=== PATIENT | male | born 1950 | race Caucasian/White ===

== ENCOUNTER 2018-11-28 02:02 | Inpatient (IN) | payer OTHER, MEDICAID ==
[2018-11-28] MEDS ORDERED: ALTEPLASE 100 MG/100 ML VIAL IV ONE ×2 (02:11→02:49)
--- NOTE | 2018-11-28 02:15 | EDPHY ---
H & P Time Seen by Provider: 11/28/18 02:11 HPI/ROS: Chief Complaint: Left-sided weakness HPI: A 68-year-old male who was last known to be normal at 12 midnight while watching TV with his . At 1:30 a.m. The patient told his that he was not feeling well. He attempted to get off the couch and noted that he could not move his left side. EMS was called. On arrival they noted significant left -sided facial droop and he is unable to move his left arm or leg. Patient has a history of diet-controlled diabetes. Blood sugar was normal per EMS. No recent falls or illnesses. No pain. He is not on any blood thinning medications in fact takes no medications at all. No allergies to medications. ROS: 10 systems were reviewed and were negative except those elements noted in the HPI. PMH: Borderline diabetic, diet controlled Social History: No smoking, no alcohol, no recreational drug use Family History: non-contributory Physical Exam: Gen: Awake, Alert, No Distress HEENT: Nose: no rhinorrhea Eyes: PERRLA, EOMI Mouth: Moist mucosa Neck: Supple, no JVD Chest: nontender, lungs clear to auscultation Heart: S1, S2 normal, no murmur Abd: Soft, non-tender, no guarding Back: no CVA tenderness, no midline tenderness Ext: no edema, non-tender Skin: no rash Neuro: See NIH stroke score Constitutional: Initial Vital Signs Heart Rate 67 11/28/18 02:02 Respiratory Rate 17 11/28/18 02:02 Blood Pressure 170/107 H 11/28/18 02:02 O2 Sat (%) 94 11/28/18 02:02 O2 Delivery Mode Room Air O2 (L/minute) 2 Allergies/Adverse Reactions: No Known Allergies Allergy (Unverified 08/27/09 15:49) Home Medications: Medication Instructions Recorded None 08/27/09 Medical Decision Making ED Course/Re-evaluation: 60-year-old male last known normal at 12 midnight arriving shortly after 2:00 a.m. With noted left-sided weakness. NIH stroke score was obtained on arrival. Had an NIH of 10. Patient noted to be hypertensive of 175. Patient's sent to CT. Patient back from CT. [facility] neurologist, Dr. Solitario Green has performed telemedicine conference. He indicates that if the CT head is negative he recommends to proceed with tPA. He is consented the patient. He also indicates that the CT angiogram of the head is negative the patient can remain in our facility. Patient is receiving labetalol 5 mg IV for his systolic blood pressure of 190. CT scan of the head is negative for acute intracranial hemorrhage. CT angiograms unremarkable. Blood pressures improved. TPA ordered. 0300 patient's having improvement in his extremities at this time. Case discussed with Dr. Camilo, hospitalist. She will admit the patient to her hospital for further care. Critical Care Time: I spent a total of 55 minutes of critical care time in obtaining history, performing a physical exam, bedside monitoring of interventions, collecting and interpreting tests and discussion with consultants but not including time spent performing procedures. - Data Points Laboratory Results: Laboratory Results 11/28/18 02:00 11/28/18 02:00 11/28/18 11/28/18 11/28/18 02:09 02:00 02:00 WBC RBC Hgb POC Hgb 16.7 gm/dL gm/dL (13.7-17.5) Hct POC Hct 49 % % (40-51) MCV MCH MCHC RDW Plt Count MPV Neut % (Auto) Lymph % (Auto) [place] % (Auto) Eos % (Auto) Baso % (Auto) Nucleat RBC Rel Count Absolute Neuts (auto) Absolute Lymphs (auto) Absolute Monos (auto) Absolute Eos (auto) Absolute Basos (auto) Absolute Nucleated RBC Immature Gran % Immature Gran # PT 12.1 SEC SEC (12.0-15.0) INR 0.87 (0.83-1.16) APTT 27.6 SEC SEC (23.0-38.0) POC Sodium 144 mEq/L mEq/L (135-145) Sodium 141 mEq/L mEq/L (135-145) POC Potassium 3.7 mEq/L mEq/L (3.3-5.0) Potassium 4.1 mEq/L mEq/L (3.5-5.2) POC Chloride 105 mEq/L mEq/L (97-110) Chloride 107 mEq/L mEq/L (97-110) Carbon Dioxide 26 mEq/l mEq/l (22-31) POC Total CO2 27 mEq/L mEq/L (22-31) Anion Gap 8 mEq/L mEq/L (6-14) POC BUN 18 mg/dL mg/dL (7-23) BUN 19 mg/dL mg/dL (7-23) Creatinine 0.8 mg/dL mg/dL (0.7-1.3) POC Creatinine 0.8 mg/dL mg/dL (0.7-1.3) Estimated GFR > 60 Glucose 110 mg/dL H mg/dL (70-100) POC Glucose 113 mg/dL H mg/dL (70-100) Calcium 10.3 mg/dL mg/dL (8.5-10.4) 11/28/18 02:00 WBC 8.98 10^3/uL 10^3/uL (3.80-9.50) RBC 5.25 10^6/uL 10^6/uL (4.40-6.38) Hgb 16.3 g/dL g/dL (13.7-17.5) POC Hgb Hct 45.9 % % (40.0-51.0) POC Hct MCV 87.4 fL fL (81.5-99.8) MCH 31.0 pg pg (27.9-34.1) MCHC 35.5 g/dL g/dL (32.4-36.7) RDW 12.2 % % (11.5-15.2) Plt Count 297 10^3/uL 10^3/uL (150-400) MPV 10.3 fL fL (8.7-11.7) Neut % (Auto) 54.1 % % (39.3-74.2) Lymph % (Auto) 31.5 % % (15.0-45.0) [place] % (Auto) 9.7 % % (4.5-13.0) Eos % (Auto) 3.5 % % (0.6-7.6) Baso % (Auto) 1.0 % % (0.3-1.7) Nucleat RBC Rel Count 0.0 % % (0.0-0.2) Absolute Neuts (auto) 4.86 10^3/uL 10^3/uL (1.70-6.50) Absolute Lymphs (auto) 2.83 10^3/uL 10^3/uL (1.00-3.00) Absolute Monos (auto) 0.87 10^3/uL H 10^3/uL (0.30-0.80) Absolute Eos (auto) 0.31 10^3/uL 10^3/uL (0.03-0.40) Absolute Basos (auto) 0.09 10^3/uL 10^3/uL (0.02-0.10) Absolute Nucleated RBC 0.00 10^3/uL 10^3/uL (0-0.01) Immature Gran % 0.2 % % (0.0-1.1) Immature Gran # 0.02 10^3/uL 10^3/uL (0.00-0.10) PT INR APTT POC Sodium Sodium POC Potassium Potassium POC Chloride Chloride Carbon Dioxide POC Total CO2 Anion Gap POC BUN BUN Creatinine POC Creatinine Estimated GFR Glucose POC Glucose Calcium Medications Given: Nicardipine/Sodium Chloride (Cardene 0.1 Mg/Ml (Premix)) 200 mls @ 0 mls/hr IV CONT MICHELLE; Titrate PRN Reason: Protocol Stop: 05/27/19 02:59 Last Admin: 11/28/18 02:46 Dose: 200 mls Discontinued Medications Alteplase, Recombinant (Activase) 6.165 mg 0.09 mg/kg (6.165 mg) IV ONCE ONE PRN Reason: Protocol Stop: 11/28/18 02:50 Last Admin: 11/28/18 02:49 Dose: 6.165 mg Alteplase, Recombinant (Activase) 55.485 mg 0.81 mg/kg (55.485 mg) IV ONCE ONE PRN Reason: Protocol Stop: 11/28/18 02:50 Last Admin: 11/28/18 02:50 Dose: 55.485 mg Labetalol HCl (Trandate Injection) 2 mg IVP ONCE ONE Stop: 11/28/18 02:46 Last Admin: 11/28/18 02:47 Dose: 5 mg Ondansetron HCl (Zofran) 4 mg IVP EDNOW ONE Stop: 11/28/18 02:46 Last Admin: 11/28/18 02:25 Dose: 4 mg Point of Care Test Results: Chemistry 11/28/18 02:09 POC Sodium 144 mEq/L mEq/L (135-145) POC Potassium 3.7 mEq/L mEq/L (3.3-5.0) POC Chloride 105 mEq/L mEq/L (97-110) POC Total CO2 27 mEq/L mEq/L (22-31) POC BUN 18 mg/dL mg/dL (7-23) POC Creatinine 0.8 mg/dL mg/dL (0.7-1.3) POC Glucose 113 mg/dL H mg/dL (70-100) ISTAT H&H 11/28/18 02:09 POC Hgb 16.7 gm/dL gm/dL (13.7-17.5) POC Hct 49 % % (40-51) Departure - Departure Disposition: [facility] Inpatient Acute Clinical Impression: Acute ischemic stroke Condition: Critical Referrals: Patient,NotPresent [Primary Care Provider] - As per Instructions NIH Stroke Scale Date of Exam: 11/28/18 Time of Exam: 02:02 Level of Consciousness: Alert LOC Questions: Answers Both LOC Commands: Performs Both Correctly Best Gaze: Normal Visual: No Visual Loss Facial Palsy: Complete Paralysis Motor Arm-Left: No Effort to [place] Motor Arm-Right: No Drift Motor Leg-Left: No Effort to [place] Motor Leg-Right: No Drift Limb Ataxis: Absent Sensory: Normal Best Language: No Aphasia Dysarthria: Mild/Mod Dysarthria Extinction and Inattention (Neglect): No Abnormality NIH Scale Score: 10
[2018-11-28] MEDS ORDERED: ONDANSETRON 4 MG/2 ML VIAL ONE (02:23)
[2018-11-28 02:24] LABS: PLATELET COUNT 297 10^3/uL (150-400)
[2018-11-28 02:38] LABS: INR 0.87 (0.83-1.16); PROTIME(PATIENT) 12.1 SEC (12.0-15.0)
[2018-11-28] MEDS ORDERED: niCARdipine/NACL/200 ML BAG IV ONE (02:41)
[2018-11-28] MEDS ORDERED: ONDANSETRON 4 MG/2 ML VIAL IVP ONE (02:45)
[2018-11-28] MEDS ORDERED: LABETALOL HCL 5 MG/ML 20 ML MDV IVP ONE (02:45)
[2018-11-28] MEDS ORDERED: ALTEPLASE 1 MG/ML SYR IV ONE (02:49)
[2018-11-28] MEDS ORDERED: NS 50 ML IV ONE (02:49)
[2018-11-28] MEDS ORDERED: ONDANSETRON 4 MG/2 ML VIAL IVP PRN (02:58)
[2018-11-28] MEDS ORDERED: ONDANSETRON DISINTEGRATING 4 MG TAB PO PRN (02:58)
[2018-11-28] MEDS ORDERED: ACETAMINOPHEN 325 MG TAB PO PRN (02:58)
[2018-11-28] MEDS ORDERED: niCARdipine/NACL 200 ML IV SCH (03:00)
[2018-11-28] MEDS ORDERED: LABETALOL HCL 5 MG/ML 20 ML MDV IVP PRN (03:00)
[2018-11-28] MEDS: METOPROLOL TARTRATE 5 MG/5 ML INJ IVP SCH ×3 (03:52→05:25)
[2018-11-28] MEDS: NS 1,000 ML IV SCH ×2 (03:52→12:08)
--- NOTE | 2018-11-28 05:06 | PDGENHP ---
History and Physical - Chief Complaint Left facial drooping and left-sided weakness - History of Present Illness Source-patient is able to provide history appears reliable. His partner Gissel is at bedside and supplements details. EMR was reviewed and case discussed with ED provider. HPI-this is a very pleasant 68-year-old gentleman with a past medical history significant for diabetes diet controlled presents emergency department today via EMS after he called for help from his partner the complaining that he could not move off the couch. They were watching TV until but midnight went on went to sleep. Within an hour patient was calling for help. He denies any loss of consciousness. Denies any chest pain or palpitations. No changes in vision. Patient states that he felt unwell and vomited. Patient reports that he felt was hard to get some words out but his main complaint was his extremities felt like lead on the left side. Gissel reports that when she arrived to the patient's side he was leaning on the couch. Was not able to sit up independently she tried to sit him up on a pillow call 911. She reports that patient's initial blood pressures were over 200. Upon arrival patient underwent stat CT CTA and given a dose of labetalol for elevated blood pressures in the 190s. Patient notes that he does have a history of hypertension however he had made significant lifestyle changes to improve his blood sugar control. He has not checked his blood pressures in some time however he does check his blood sugars and he thought that the lower blood sugars would correlate with an improved blood pressure. After consultation with [facility] Neurology patient was consented to initiate tPA therapy. Since that time patient's symptoms have mostly resolved. He continues to have a little facial drooping and nearly normal strength in his upper and lower extremity. Patient without any speech deficits. 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 - Family History Additional family history: Maternal uncle with history CVA at elderly age otherwise family are healthy. - Social History Smoking Status: Unknown if ever smoked Alcohol Use: None Drug Use: None Additional social history: Patient lives with his significant other Gissel. Cor status-full. Review of Systems Review of Systems: ROS: 10pt was reviewed & negative except for what was stated in HPI & below Physical Exam Physical Exam: Selected Entries 11/28/18 02:02 Blood Pressure Automatic Method Heart Rate 67 Respiratory 17 Rate O2 Sat (%) 94 Blood Pressure 170/107 H Mean Arterial 128 H Pressure (MAP) O2 Delivery Room Air Mode Temp Pulse Resp BP Pulse Ox 36.2 C 62 18 178/97 H 94 11/28/18 03:30 11/28/18 04:45 11/28/18 04:45 11/28/18 04:45 11/28/18 04:45 O2 (L/minute) 2 Constitutional: no apparent distress, other (NAD. Pleasant elderly frail- appearing gentleman is sitting up in gurney. His significant other is at bedside.) Eyes: PERRL (Slightly decreased reactivity light bilaterally but symmetric.), anicteric sclera, EOMI, No scleral injection Ears, Nose, Mouth, Throat: poor dentition, dry mucous membranes, other (No nasal discharge.) Cardiovascular: regular rate and rhythym, no murmur, rub, or gallop, pulses symmetric bilaterally, No edema Peripheral Pulses: 2+: dorsalis-pedis (R), dorsalis-pedis (L) Respiratory: no respiratory distress, no rales or rhonchi, clear to auscultation , No inspiratory crackles, No respiratory distress Gastrointestinal: normoactive bowel sounds, soft, non-tender abdomen, no palpable masses, No distension Genitourinary: no bladder tenderness, No castillo in urethra Skin: warm, normal color, no rashes or abrasions Musculoskeletal: other (Patient is able to move all extremities. There is very minimally subtle strength difference in his upper lower extremity on the left just barely weaker than the right.), No generalized weakness Neurologic: AAOx3, sensation intact bilaterally, facial droop (Minimal left lower facial droop otherwise cranial nerves intact.) Psychiatric: interacting appropriately, not encephalopathic, thought process linear, anxious, No poor insight, No poor judgement, No poor memory Lab Data & Imaging Review 11/28/18 02:00 11/28/18 02:00 WBC 8.98 10^3/uL (3.80-9.50) 11/28/18 02:00 RBC 5.25 10^6/uL (4.40-6.38) 11/28/18 02:00 Hgb 16.3 g/dL (13.7-17.5) 11/28/18 02:00 POC Hgb 16.7 gm/dL (13.7-17.5) 11/28/18 02:09 Hct 45.9 % (40.0-51.0) 11/28/18 02:00 POC Hct 49 % (40-51) 11/28/18 02:09 MCV 87.4 fL (81.5-99.8) 11/28/18 02:00 MCH 31.0 pg (27.9-34.1) 11/28/18 02:00 MCHC 35.5 g/dL (32.4-36.7) 11/28/18 02:00 RDW 12.2 % (11.5-15.2) 11/28/18 02:00 Plt Count 297 10^3/uL (150-400) 11/28/18 02:00 MPV 10.3 fL (8.7-11.7) 11/28/18 02:00 Neut % (Auto) 54.1 % (39.3-74.2) 11/28/18 02:00 Lymph % (Auto) 31.5 % (15.0-45.0) 11/28/18 02:00 [place] % (Auto) 9.7 % (4.5-13.0) 11/28/18 02:00 Eos % (Auto) 3.5 % (0.6-7.6) 11/28/18 02:00 Baso % (Auto) 1.0 % (0.3-1.7) 11/28/18 02:00 Nucleat RBC Rel Count 0.0 % (0.0-0.2) 11/28/18 02:00 Absolute Neuts (auto) 4.86 10^3/uL (1.70-6.50) 11/28/18 02:00 Absolute Lymphs (auto) 2.83 10^3/uL (1.00-3.00) 11/28/18 02:00 Absolute Monos (auto) 0.87 10^3/uL (0.30-0.80) H 11/28/18 02:00 Absolute Eos (auto) 0.31 10^3/uL (0.03-0.40) 11/28/18 02:00 Absolute Basos (auto) 0.09 10^3/uL (0.02-0.10) 11/28/18 02:00 Absolute Nucleated RBC 0.00 10^3/uL (0-0.01) 11/28/18 02:00 Immature Gran % 0.2 % (0.0-1.1) 11/28/18 02:00 Immature Gran # 0.02 10^3/uL (0.00-0.10) 11/28/18 02:00 PT 12.1 SEC (12.0-15.0) 11/28/18 02:00 INR 0.87 (0.83-1.16) 11/28/18 02:00 APTT 27.6 SEC (23.0-38.0) 11/28/18 02:00 POC Sodium 144 mEq/L (135-145) 11/28/18 02:09 Sodium 141 mEq/L (135-145) 11/28/18 02:00 POC Potassium 3.7 mEq/L (3.3-5.0) 11/28/18 02:09 Potassium 4.1 mEq/L (3.5-5.2) 11/28/18 02:00 POC Chloride 105 mEq/L (97-110) 11/28/18 02:09 Chloride 107 mEq/L (97-110) 11/28/18 02:00 Carbon Dioxide 26 mEq/l (22-31) 11/28/18 02:00 POC Total CO2 27 mEq/L (22-31) 11/28/18 02:09 Anion Gap 8 mEq/L (6-14) 11/28/18 02:00 POC BUN 18 mg/dL (7-23) 11/28/18 02:09 BUN 19 mg/dL (7-23) 11/28/18 02:00 Creatinine 0.8 mg/dL (0.7-1.3) 11/28/18 02:00 POC Creatinine 0.8 mg/dL (0.7-1.3) 11/28/18 02:09 Estimated GFR > 60 11/28/18 02:00 Glucose 110 mg/dL (70-100) H 11/28/18 02:00 POC Glucose 113 mg/dL (70-100) H 11/28/18 02:09 Calcium 10.3 mg/dL (8.5-10.4) 11/28/18 02:00 Imaging Review: Preliminary imaging study reviewed. CT head - age indeterminate lacunar infarct in ALIC, CTA head and neck - unremarkable Visualized and Interpreted imaging results: Yes Visualized and Interpreted EKG results: Yes EKG additional interpertation: NSR 60s. No acute ST changes. Q-waves septal leads. ST depression in lateral leads. No acute ST elevations. QTC 454. Assessment & Plan Assessment: 68-year-old gentleman with a history of diet-controlled diabetes and reported controlled hypertension presents emergency department today with left-sided weakness Acute ischemic stroke (Acute) - status post tPA. Patient will be admitted ICU. Stroke protocol in place. Neurology consult morning. PT OT ST. Patient symptoms are improving. Still has a slight left lower facial droop which does appear to be improving as well. MRI when patient stabilized. a1c. lipid panel. Left-sided weakness - as noted above. Hypertensive emergency - blood pressures improved after single dose of labetalol. Continue with p.r.n. Metoprolol at this time to maintain systolic blood pressures < 180 . Type 2 diabetes controlled - the diet-controlled. Check A1c. FEN - IVF overnight s/p contrast load. monitor electrolytes and replace prn. diet after passed swallow eval when facial droop resolved. PPX - SCDs. s/p tpa COR - FULL Dispo - admit to inpatient status to the ICU floor for close neurologic the cardiac monitoring in setting of acute CVA status post tPA.
--- NOTE | 2018-11-28 05:23 | CPEKG ---
Test Reason : OPEN Blood Pressure : / mmHG Vent. Rate : 069 BPM Atrial Rate : 069 BPM P-R Int : 182 ms QRS Dur : 105 ms QT Int : 423 ms P-R-T Axes : 069 055 092 degrees QTc Int : 454 ms Sinus rhythm Anteroseptal infarct, old Nonspecific T abnormalities, lateral leads Confirmed by Waqas Solitario ([id number]) on 11/28/2018 5:22:57 AM Referred By: Waqas Solitario Confirmed By:Waqas Solitario
--- NOTE | 2018-11-28 09:29 | HOSPPROG ---
Hospitalist Progress Note Objective: Vital Signs Temp Pulse Resp BP Pulse Ox 36.7 C 53 L 13 125/70 H 98 11/28/18 07:00 11/28/18 09:00 11/28/18 09:00 11/28/18 09:00 11/28/18 09:00 11/27/18 11/28/18 11/29/18 06:59 06:59 06:59 Intake Total 500 Output Total 1000 250 Balance -500 -250 PT 12.1 SEC (12.0-15.0) 11/28/18 02:00 INR 0.87 (0.83-1.16) 11/28/18 02:00 ICD10 Worksheet Patient Problems: Problems Problem Status Onset Acute ischemic stroke Acute
--- NOTE | 2018-11-28 09:40 | NEUROPROG ---
Assessment: [id number] - Neurology Consult: - CC: Suspected stroke, s/p TPA - HPI: Pt noted to have sudden onset weakness on 11/28/18. Brought to [facility] ER with head CT showing no acute bleed and CTA head/neck showing no significant findings. Teleneurology felt pt having stroke so pt given TPA and placed in ICU. Symptoms generally resolved. Pt not on aspirin or statin prior to event. I initially saw pt on 11/28/18. Neurologic exam was normal with NIH SS 0. - PMHx: DM2, HTN, prior lacunar strokes on previous imaging, [place] Palsy, choli - SHx: lives with significant other, Gissel FHx: CVA - ROS: Pt denied acute fever, total vision loss, active severe chest pain, respiratory failure, total body severe rash, total bowel/bladder incontinence, psychosis, active seizures, or active bleeding - O: VS reviewed General: Alert Eyes: Fundoscopic exam not able to visualize optic disks CV: Heart RRR, no murmur, no carotid bruit Lungs: Clear to auscultation bilaterally, no rhonchi or rales Neuro: - Mental: . Oriented x person/place/date . concentration appears normal . speech fluency/comprehension normal . memory appears normal . fund of knowledge appear intact - Cranial Nerves: . II: PERRL, VFFTC . III/IV/: EOMI, no nystagmus, normal smooth pursuits, no Ptosis . V: facial sensation intact to LT . VII: face symmetric to eye closure and smile . VIII: hearing intact to conversation . IX/X: uvula raises symmetrically . XI: SCM 5/5 B/L strength . XII: tongue protrudes midline w/nl strength - Motor: . Tone: normal tone in all 4 extremity . Strength: no pronator drift, strength 5/5 throughout (B/L delt, bic, tri, hand echo vascular technologist, hf/he, df/pf) - Reflexes: B/L bic 2/4 - Sensory: all 4 extremity intact to light touch - Coord: [id number] wnl, LISBETH wnl, [id number] wnl - Gait: deferred - Labs: 11/28/18- Na 144 - Rads: 11/28/18- Head CT: no acute bleed (I personally visualized the images on 11/28/18) 11/28/18- Head/neck CTA: no significant stenosis or occlusion - Assessment: 1. Left sided weakness on 11/28/18, given TPA for suspected stroke (symptoms resolved) - 2. DM2 - Plan: - Head CT 24 hours after TPA, if no bleed then begin aspirin 81 mg qd - Brain MRI wo after head CT - TTE - 24 hour telemetry - Blood pressure < 180/110 x 48 hours then < 140/90 - Lipid panel (if LDL > 70 then begin statin) - H1AC goal < 7.0 - PT/OT/Speech to determine rehab needs - F/U in neurology clinic 1-6 weeks after hospital discharge Objective: Vital Signs Temp Pulse Resp BP Pulse Ox 36.7 C 53 L 13 125/70 H 98 11/28/18 07:00 11/28/18 09:00 11/28/18 09:00 11/28/18 09:00 11/28/18 09:00 11/27/18 11/28/18 11/29/18 05:59 05:59 05:59 Intake Total 500 Output Total 1000 250 Balance -500 -250 PT 12.1 SEC (12.0-15.0) 11/28/18 02:00 INR 0.87 (0.83-1.16) 11/28/18 02:00 Allergies/Adverse Reactions: No Known Allergies Allergy (Unverified 11/28/18 03:29)
--- NOTE | 2018-11-28 09:42 | ASMTCASEMG ---
Living Arrangements What is your living Answers: With Partner arrangement? Who do you live with? Type Of Residence What kind of residence do Answers: House you live in? Discharge Plan Comments Coordination Status Comments Notes: Patient is a 68yo male who lives with his life partner, Gissel and has hx of diabetes and hypertension. Patient has been admitted for acute ischemic stroke. PT/OT/ACCOUNTING ASSISTANT evals have been ordered. D/C plan TBD. CM will follow. Date Signed: 11/28/2018 09:42 AM Electronically Signed By:Carleen Lewis LCSW
--- NOTE | 2018-11-28 09:52 | PDMN ---
Medical Necessity Medical necessity: [facility] M83 Ischemic Stroke, 2 days: 68 yo w/ acute ischemic stroke, s/p tPA, admit IP status to ICU.
--- NOTE | 2018-11-28 11:32 | HOSPPROG ---
Hospitalist Progress Note Assessment/Plan: DIAGNOSES: * Suspected acute ischemic stroke with left-sided weakness, weakness completely resolved now after tPA * No headache or evidence of other neurologic injury after tPA * Initial hypertension resolved spontaneously * Sinus rhythm * History of lacunar infarcts * Diabetes * Essential hypertension chronic * Dewey's palsy * Cholecystectomy by history PLANS: * Continue careful neurologic monitoring, blood pressure monitoring, blood sugar and oxygen and temperature * Continue cardiac branch account manager * Repeat head CT later today at 24 hr post treatment * MRI brain * PT and OT assessments * Should be able to move out of intensive care if CT stable * Patient had many questions today about his stroke and about the tPA treatment which were answered to his satisfaction I have seen the patient today on hospitalist rounds as well as multidisciplinary ICU rounds SUBJECTIVE: Feels much better, good return of strength No new neurologic symptoms No headache No visual symptoms OBJECTIVE Vitals reviewed: Blood pressures returned to normal range, otherwise stable vitals without fever Optical Laboratory Mechanic, my review: All sinus so far Exam: alert oriented Neuro exam shows him to be with normal mentation and attention, normal speech and language function, normal cranial nerve exam, and normal symmetric strength in all muscle groups of the extremities skin warm dry color ok resps not labored lungs clear BSs heart regular abd soft nondistended nontender, bowel sounds present limbs warm, no edema iv site ok Lab data: Glucose 113 otherwise unremarkable chemistry panel Objective: Vital Signs Temp Pulse Resp BP Pulse Ox 36.7 C 57 L 20 149/81 H 99 11/28/18 07:00 11/28/18 11:00 11/28/18 11:00 11/28/18 11:00 11/28/18 11:00 11/27/18 11/28/18 11/29/18 06:59 06:59 06:59 Intake Total 500 Output Total 1000 450 Balance -500 -450 PT 12.1 SEC (12.0-15.0) 11/28/18 02:00 INR 0.87 (0.83-1.16) 11/28/18 02:00 - Time Spent With Patient Time Spent with Patient: greater than 35 minutes Time Spent with Patient: Greater than 35 minutes spent on this patients care, greater than 50% of time spent counseling, educating, and coordinating care regarding the above mentioned plan. ICD10 Worksheet Patient Problems: Problems Problem Status Onset Acute ischemic stroke Acute
--- NOTE | 2018-11-28 11:40 | ECHO ---
[email or web address] [address] [address] Main: [phone] Fax: Transthoracic Echocardiogram Name: JOSY BUSBY MR#: [id number] Study Date: 11/28/2018 Study Time: 10:51 AM Date of : 1950 Age: 68 year(s) Height: 175.3 cm (69 in.) Weight: 65.77 kg (145 lb.) BSA: 1.8 m2 Gender: Male Examination: Echo with Agitated Saline Indication: Cerebrovascular: prior CVA Image Quality: Contrast: Requested by: Delmi Camilo BP: 139 mmHg/70 mmHg Heart Rate: Rhythm: Indication: Cerebrovascular: prior CVA Procedure Staff Laborer Gold Leaf: Jose Gr RDCS Reading Physician: Geoffrey Shook MD Requesting Provider: Conclusions: No pericardial effusion. Preserved LV systolic function. Agitated saline injection showed no evidence of shunting. No significant valvular abnormalities by Doppler or 2 dimensional study. Measurements: Chambers Valvular Assessment AV/MV Valvular Assessment TV/PV Normal Normal Normal Name Value Range Name Value Range Name Value Range Ao Isa (MM): 2.6 cm (2.2 cm-3.7 MV E Vmax: 0.85 m/s ( - ) PV Vmax: 0.77 m/s (0.6 m/s-0.9 cm) MV A Vmax: 0.65 m/s ( - ) m/s) IVSd (2D): 0.9 cm (0.6 cm-1.1 MV E/A: 1.31 ( - ) PV PGmax: 2 mmHg ( - ) cm) LVDd (2D): 4.6 cm (4.2 cm-5.9 cm) LVDs (2D): 3.1 cm (2.1 cm-4 cm) LVPWd (2D): 1.0 cm (0.6 cm-1 cm) LVEF (2D): 61 (>=54 %) Continued Measurements: Valvular Assessment AV/MV Name Value MV E' Septal: 0.08 m/s MV E/E' Septal: 11.10 MV E/E' Lateral: 12.90 Findings: Left Ventricle: Patient: JOSY BUSBY Study Date: 11/28/2018 Page 1 of 2 10:51 AM Normal size left ventricle. No LV hypertrophy. Normal global systolic LV function. EF is 61 %. No regional wall motion abnormality. Diastolic dysfunction is present. . Right Ventricle: Normal size right ventricle. Normal RV function. Left Atrium: The left atrium is normal in size. An agitated saline study was performed and was negative for intracardiac shunting. Right Atrium: The right atrium is normal in size. Mitral Valve: The mitral valve is normal in appearance and function. There is no mitral valve regurgitation. Aortic Valve: There is no significant aortic valve regurgitation. Tricuspid Valve: The tricuspid valve is normal in appearance and function. There is no tricuspid valve regurgitation. Pulmonic Valve: The pulmonic valve is normal in appearance and function. Aorta: The aorta is normal. Pericardium: No pericardial effusion. Exam Comments: (No Signature Object) Patient: JOSY BUSBY Study Date: 11/28/2018 Page 2 of 2 10:51 AM [id number]
--- NOTE | 2018-11-28 12:53 | GCON ---
[f rep st] CONSULTATION REFERRING PHYSICIAN: Delmi Camilo MD REASON FOR ADMISSION: Acute stroke. I was asked to see the patient in consultation by Dr. Delmi yip. Mr. Martínez is an extremely pleasant 68-year-old white male with a past medical history, includi ng diabetes and hypertension. He is brought via EMS after complaining he could not move off the couc h. He was brought in fairly quickly, was diagnosed with acute stroke symptoms. Consultation occurre d with [facility], and tPA was initiated. His stroke symptoms completely resolved. He is cu rrently resting comfortably. In discussion with the patient, he states he denies any cough or produc tion of sputum. There is no chest pain, pleuritic-type chest pain or angina equivalent. He denies a ny blurred vision or double vision. He is having no problem with speech. REVIEW OF SYSTEMS: A 10-point review of systems is performed and negative, except for what is listed in HPI. ALLERGIES: No known allergies to medications. 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 PAST SURGICAL HISTORY: He has had a cholecystectomy. FAMILY HISTORY: Significant for stroke. SOCIAL HISTORY: No history of tobacco use. No history of alcohol use. Patient lives at home with s ignificant other. His family is at the bedside. He has excellent family support. PHYSICAL EXAM: VITAL SIGNS: Blood pressure 122/66, pulse is 59, respirations are 20, temperature 36 .8. Oxygen saturation 100% on 2 liters. GENERAL: He is a well-developed, well-nourished elderly wh ite male resting comfortably in no acute distress. HEENT: Eyes are MLEODY, EOMI. Throat shows no er ythema or tonsillar hypertrophy. He does have poor dentition. NECK: Supple. There is no cervical adenopathy. CARDIAC: Heart is regular rate and rhythm with a 2/6 systolic murmur at the left sterna l border without radiation. LUNGS: Diminished breath sounds but no wheeze. ABDOMEN: Soft, nontend er. Bowel sounds are present in all 4 quadrants. EXTREMITIES: No clubbing, cyanosis or edema. LABORATORIES: His white count is 8.9, hemoglobin 16, hematocrit 45, platelet count is 297. INR 0.87 . Sodium 144, potassium 3.7, chloride 105, CO2 26, BUN 19, creatinine 0.8, glucose is 110. STUDIES: Echocardiogram is negative. CT scan of the head reveals nothing acute. CTA of the neck is normal. IMPRESSION: 1. Acute stroke. 2. Status post tissue plasminogen activator. 3. Neurologic deficits have resolved. 4. Diabetes. 5. Hypertension. RECOMMENDATIONS: 1. Agree with close neurologic monitoring. 2. DVT and PE prophylaxis. 3. Stress ulcer prophylaxis. 4. PT and OT. 5. Speech to see. 6. Anticipate discharge home soon. Thank you very much for allowing me to participate in the care of this interesting patient. Will fol low along with you. /[id number]/MODL
--- NOTE | 2018-11-29 09:30 | PDINTPN ---
Linen Supply Load Builder Progress Note Assessment/Plan: Assessment/plan: * Acute stroke-symptoms resolved post lytic therapy * Status post tPA -CT scan today * Hypertension * Diabetes -continue aggressive blood sugar control * VTE prophylaxis * Stress ulcer prophylaxis * Disposition -will transfer to medical surgical floor today Subjective: Sitting up in chair. Resting comfortably. Objective: Vital Signs Temp Pulse Resp BP Pulse Ox 36.6 C 50 L 12 125/66 H 96 11/29/18 05:00 11/29/18 08:00 11/29/18 08:00 11/29/18 08:00 11/29/18 08:00 11/28/18 11/29/18 11/30/18 05:59 05:59 05:59 Intake Total 500 2343 Output Total 1000 1675 Balance -500 668 PT 12.1 SEC (12.0-15.0) 11/28/18 02:00 INR 0.87 (0.83-1.16) 11/28/18 02:00 - Time Spent With Patient Time Spent With Patient: 35 min of time spent with patient, over 1/2 involved with coordination of care counseling. Case discussed with nursing Physical Exam - Physical Exam General Appearance: alert, no apparent distress, moderate distress Neck: non-tender Respiratory: chest non-tender, lungs clear, normal breath sounds Cardiac/Chest: normal peripheral pulses, regular rate, rhythm Abdomen: normal bowel sounds, non-tender, soft Male Genitalia: deferred Rectal: deferred Back: Normal inspection Skin: warm/dry Lymphatic: no adenopathy Extremities: normal range of motion, non-tender, normal inspection, normal capillary refill Neuro/Psych: no motor/sensory deficits, alert, normal mood/affect, oriented x 3 ICD10 Worksheet Patient Problems: Problems Problem Status Onset Acute ischemic stroke Acute
--- NOTE | 2018-11-29 11:14 | HOSPPROG ---
Hospitalist Progress Note Assessment/Plan: DIAGNOSES: * Suspected acute ischemic stroke with left-sided weakness, weakness completely resolved now after tPA * No headache or evidence of other neurologic injury after tPA * Initial hypertension resolved spontaneously * Sinus rhythm * History of lacunar infarcts * Diabetes * Essential hypertension chronic * Dewey's palsy * Cholecystectomy by history PLANS: * Continue careful neurologic monitoring, blood pressure monitoring, blood sugar and oxygen and temperature * Continue cardiac campus monitor * Begin statin therapy today * MRI brain today * PT and OT assessments * Transfer to neurology unit * Patient had many questions today about his stroke and about the tPA treatment which were answered to his satisfaction Reviewed with Dr. Blount today SUBJECTIVE: Feels much better, good return of strength No new neurologic symptoms No headache No visual symptoms OBJECTIVE Vitals reviewed: All normal without fever Technician Chemical Cleaning, my review: All sinus so far Exam: alert oriented Neuro exam shows him to be with normal mentation and attention, normal speech and language function, normal cranial nerve exam, and normal symmetric strength in all muscle groups of the extremities skin warm dry color ok resps not labored lungs clear BSs heart regular abd soft nondistended nontender, bowel sounds present limbs warm, no edema iv site ok Lab data: LDL cholesterol 150 Imaging: I reviewed the CT scan images from this morning, there is no hemorrhage or other acute abnormality Objective: Vital Signs Temp Pulse Resp BP Pulse Ox 36.6 C 50 L 12 125/66 H 96 11/29/18 05:00 11/29/18 08:00 11/29/18 08:00 11/29/18 08:00 11/29/18 08:00 11/28/18 11/29/18 11/30/18 06:59 06:59 06:59 Intake Total 500 2343 Output Total 1000 1675 150 Balance -500 668 -150 PT 12.1 SEC (12.0-15.0) 11/28/18 02:00 INR 0.87 (0.83-1.16) 11/28/18 02:00 - Time Spent With Patient Time Spent with Patient: greater than 35 minutes Time Spent with Patient: Greater than 35 minutes spent on this patients care, greater than 50% of time spent counseling, educating, and coordinating care regarding the above mentioned plan. ICD10 Worksheet Patient Problems: Problems Problem Status Onset Acute ischemic stroke Acute
--- NOTE | 2018-11-29 11:48 | ASMTCMCOM ---
CM Note CM Note Notes: PT/OT are recommending inpatient rehab. An order for the eval was placed by Dr. Mitchell. Left a phone message for [facility] regarding patient's eligibility and whether or not they have beds. Per Dr. Mitchell, patient may be ready to discharge tomorrow. A referral was sent to [facility] inpatient rehab via [employer]. CM will follow. Date Signed: 11/29/2018 11:47 AM Electronically Signed By:Carleen Lewis LCSW
--- NOTE | 2018-11-29 12:26 | NEUROPROG ---
Assessment: [id number] - Neurology Consult: - CC: Suspected stroke, s/p TPA - Narrative Summary: Pt noted to have sudden onset left sided weakness on 11/28/18. Brought to [facility] ER with head CT showing no acute bleed and CTA head/neck showing no significant findings. Teleneurology felt pt having stroke so pt given TPA and placed in ICU. Symptoms generally resolved. Pt not on aspirin or statin prior to event. I initially saw pt on 11/28/18. Neurologic exam was normal with NIH SS 0. - HPI: F/U 11/28/18. H1AC 5.7. LDL 151 (recommend pt begin statin). Pt does have baseline left facial weakness from prior [place] Palsy. Pt stable with no new complaints. TTE unconcerning and telemetry showed no afib. Head CT showed no bleed so recommend beginning aspirin 81 mg qd. - PMHx: DM2, HTN, prior lacunar strokes on previous imaging, Left [place] Palsy, choli - SHx: lives with significant other, Gissel FHx: CVA - ROS: Pt denied acute fever, total vision loss, active severe chest pain, respiratory failure, total body severe rash, total bowel/bladder incontinence, psychosis, active seizures, or active bleeding - Labs: 11/28/18- 5.7, LDL 151 - Rads: 11/28/18- Head CT: no acute bleed 11/28/18- Head/neck CTA: no significant stenosis or occlusion 11/28/18- TTE: no cause of stroke found 11/28/18- 24 hour telemetry: no afib noted 11/29/18- Head CT: no bleed - Assessment: 1. Left sided weakness on 11/28/18, given TPA for suspected stroke (symptoms resolved) - 2. DM2 - 3. Prior [place] Palsy with baseline left facial weakness - Plan: - begin aspirin 81 mg qd - Brain MRI wo - Blood pressure < 180/110 x 24 hours then < 140/90 - LDL goal < 70 (151), recommend beginning statin - H1AC goal < 7.0 (5.7) - PT/OT/Speech to determine rehab needs - F/U in neurology clinic 1-6 weeks after hospital discharge - 35 min spent with patient and his nurse, majority of time spent counseling on his condition and planned treatment. Objective: Vital Signs Temp Pulse Resp BP Pulse Ox 36.6 C 61 14 155/68 H 94 11/29/18 05:00 11/29/18 11:37 11/29/18 11:37 11/29/18 11:37 11/29/18 11:37 11/28/18 11/29/18 11/30/18 05:59 05:59 05:59 Intake Total 500 2343 Output Total 1000 1675 150 Balance -500 668 -150 PT 12.1 SEC (12.0-15.0) 11/28/18 02:00 INR 0.87 (0.83-1.16) 11/28/18 02:00 Allergies/Adverse Reactions: No Known Allergies Allergy (Verified 11/28/18 10:00)
[2018-11-29] MEDS: ATORVASTATIN CALCIUM 10 MG TAB PO SCH (15:41)
[2018-11-29] MEDS: ASPIRIN EC 81 MG TAB PO SCH (18:08)
[2018-11-30] MEDS: ASPIRIN EC 81 MG TAB PO SCH (08:01)
[2018-11-30] MEDS: ATORVASTATIN CALCIUM 10 MG TAB PO SCH (08:01)
--- NOTE | 2018-11-30 09:39 | NEUROPROG ---
Assessment: [id number] - Neurology Consult: - CC: Suspected stroke, s/p TPA - Narrative Summary: Pt noted to have sudden onset left sided weakness on 11/28/18. Brought to [facility] ER with head CT showing no acute bleed and CTA head/neck showing no significant findings. Teleneurology felt pt having stroke so pt given TPA and placed in ICU. Symptoms generally resolved. Pt not on aspirin or statin prior to event. I initially saw pt on 11/28/18. Neurologic exam was normal with NIH SS 0. - F/U 11/29/18. H1AC 5.7. LDL 151 (recommend pt begin statin). Pt does have baseline left facial weakness from prior [place] Palsy. Pt stable with no new complaints. TTE unconcerning and telemetry showed no afib. Head CT showed no bleed so recommend beginning aspirin 81 mg qd. - HPI: F/U 11/30/18: Brain MRI wo showed small lacunar stroke in right internal capsule. Likely mechanism is underlying HTN, DM2, and elevated LDL. Treatment will be beginning ASA/statin and working closely with PCM to control DM2, HTN, and LDL. No further w/u needed inpt, neurology will sign off. - PMHx: DM2, HTN, prior lacunar strokes on previous imaging, Left [place] Palsy, choli - SHx: lives with significant other, Gissel FHx: CVA - ROS: Pt denied acute fever, total vision loss, active severe chest pain, respiratory failure, total body severe rash, total bowel/bladder incontinence, psychosis, active seizures, or active bleeding - Labs: 11/28/18- 5.7, LDL 151 - Rads: 11/28/18- Head CT: no acute bleed 11/28/18- Head/neck CTA: no significant stenosis or occlusion 11/28/18- TTE: no cause of stroke found 11/28/18- 24 hour telemetry: no afib noted 11/29/18- Head CT: no bleed 11/29/18- Brain MRI wo: right internal capsular lacunar acute infarct - Assessment: 1. Right internal capsule lacunar stroke causing left sided weakness on 11/28/18, given TPA (symptoms resolved): mechanism of stroke felt to be small vessel disease from underlying HTN, DM2, and HLD - 2. DM2 - 3. Prior [place] Palsy with baseline left facial weakness - Plan: - continue aspirin 81 mg qd for stroke prevention - Blood pressure < 140/90 - LDL goal < 70 (151), recommend beginning statin - H1AC goal < 7.0 (5.7) - PT/OT/Speech to determine rehab needs - F/U in neurology clinic 1-6 weeks after hospital discharge - 35 min spent with patient, majority of time spent counseling on his condition and planned treatment as well as prognosis. Objective: Vital Signs Temp Pulse Resp BP Pulse Ox 36.6 C 65 18 120/83 H 95 11/30/18 04:00 11/30/18 08:00 11/30/18 08:00 11/30/18 08:00 11/30/18 08:00 11/29/18 11/30/18 12/01/18 05:59 05:59 05:59 Intake Total 2343 1100 Output Total 1675 450 Balance 668 650 PT 12.1 SEC (12.0-15.0) 11/28/18 02:00 INR 0.87 (0.83-1.16) 11/28/18 02:00 Allergies/Adverse Reactions: No Known Allergies Allergy (Verified 11/28/18 10:00)
--- NOTE | 2018-11-30 11:00 | HOSPPROG ---
Hospitalist Progress Note Assessment/Plan: DIAGNOSES: * acute ischemic stroke with left-sided weakness, weakness improved after tPA with no signs of complication -still having some difficulty with ambulation due to postural stability and left leg weakness, limb strength testing in bed is excellent -still some left facial droop, unclear if this is from his previous Dewey's but per his it is * No headache or evidence of other neurologic injury after tPA * Sinus rhythm, no AFib on cardiac monitors * History of lacunar infarcts * Diabetes -currently controlled with weight loss and diet with excellent hemoglobin A1c , sugars okay here * Hyperlipidemia with high LDL 151, triglycerides are much better than they have in the past with weight loss -Lipitor started here will need ongoing monitoring of lipids * Essential hypertension chronic; had expected significant hypertension at presentation that has resolved back to his baseline spontaneously -some ongoing mild hypertension here * 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 Blount * Continue cardiac satellite project site monitor while here * Lipitor has been started as well as daily aspirin * Will add some lisinopril for blood pressure * PT and OT assessments Again the patient had many questions about his medications today and his stroke , diet and other issues. Reviewed with Dr. Blount today SUBJECTIVE: Feels much better, good return of strength No new neurologic symptoms No headache No visual symptoms OBJECTIVE Vitals reviewed: All normal without fever Clarification Operator, my review: All sinus so far Exam: alert oriented Neuro exam shows him to be with normal mentation and attention, normal speech and language function, normal cranial nerve exam, and normal symmetric strength in all muscle groups of the extremities skin warm dry color ok resps not labored lungs clear BSs heart regular abd soft nondistended nontender, bowel sounds present limbs warm, no edema iv site ok Lab data: LDL cholesterol 150 Imaging: I reviewed the CT scan images from this morning, there is no hemorrhage or other acute abnormality Objective: Vital Signs Temp Pulse Resp BP Pulse Ox 36.6 C 65 18 120/83 H 95 11/30/18 04:00 11/30/18 08:00 11/30/18 08:00 11/30/18 08:00 11/30/18 08:00 11/29/18 11/30/18 12/01/18 06:59 06:59 06:59 Intake Total 2343 1100 Output Total 4653 450 Balance 668 650 PT 12.1 SEC (12.0-15.0) 11/28/18 02:00 INR 0.87 (0.83-1.16) 11/28/18 02:00 - Time Spent With Patient Time Spent with Patient: greater than 35 minutes Time Spent with Patient: Greater than 35 minutes spent on this patients care, greater than 50% of time spent counseling, educating, and coordinating care regarding the above mentioned plan. ICD10 Worksheet Patient Problems: Problems Problem Status Onset Acute ischemic stroke Acute
[2018-11-30] MEDS ORDERED: LISINOPRIL 5 MG TAB PO SCH (11:15)
[2018-11-30 11:34] VITALS: BP 150/91
--- NOTE | 2018-11-30 13:08 | PDIAF ---
- Diagnosis Diagnosis: stroke, hyperlipidemia, HTN Code Status: Full Code - Medication Management Discharge Medications: electronically signed and located in the Home Medication List. PICC Care - Routine: N/A - Orders Services needed: Registered Nurse, Certified Automated Weaver, Master Medical Staff Services Coordinator , Physical Therapy, Occupational Therapy, Speech Language Pathologist Diet Recommendation: cardiac -low fat low salt, ADA 2000 consistent carb Diet Texture: Regular Texture Diet, Thin Liquids, Meds Whole w/Liquids Activity/Weight Bearing Restrictions: full wt bear, fall risk precautions - Follow Up Care Current Providers and Referrals: Patient,NotPresent [Unknown] - As per Instructions
--- NOTE | 2018-11-30 13:14 | PDDCSUM ---
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 Waqas Blount PROCEDURES: CT of head, CT angio of head and neck Administration of tPA stroke protocol without complication Repeat CT of head with no bleed MRI of brain showing ischemic stroke right internal capsule HOSPITAL COURSE SUMMARY: This patient presented with acute onset of left-sided weakness at home. There is no headache and no injury. CT scan of head and CT angio of head and neck were unremarkable. He underwent administration of tPA and did have some notable improvement with the tPA infusion however has had some persistent postural weakness and gait instability. There is some residual left facial droop though this is hard to assess as he apparently has some of this from previous Dewey's palsy. There was some hypertension significantly upon ER presentation that came down into much better ranges spontaneously. He does however have chronic low-grade hypertension not on medications at home and had some persisting mild hypertension here. He has type 2 diabetes mellitus excellently controlled with diet so far and has normal hemoglobin A1c here. His LDL is 151 and he is not yet on statin therapy. He was not taking any anti-platelet therapy at home. Echocardiogram was unremarkable here. He was monitored on cardiac EKG monitors with no signs of AFib or other arrhythmia here. There is no other signs of acute illness beyond the stroke, and no findings of any particular complications from the stroke or treatment. At this time he is stable for discharge from hospital but will require ongoing physical occupational and speech language therapy. He will be transferred at this time to the inpatient rehabilitation unit at the [facility] of this institution. PENDING TEST RESULTS: None MEDICATION CHANGES: Addition of daily aspirin Addition of Lipitor 10 mg daily Addition of lisinopril FOLLOW-UP PLAN: At this time he is transferred to the inpatient rehabilitation unit at the [facility] for further PT OT ST Further follow-up beyond that with his primary care physician and in neurology clinic Greater than 35 minutes bedside and care coordination time today
--- NOTE | 2018-11-30 14:26 | ASMTDCNOTE ---
Case Management Discharge Discharge Order Complete? Answers: Yes Patient to Obtain Answers: Other Notes: in rehab Medications Transportation Arranged Answers: Family/Friends Transport will Pick (Date 11/30/2018 12:00 AM & Time) Faxed Final Orders Answers: Yes Agency/Facility Transfer Answers: Yes Report Printed & Faxed to Receiving Agency Discharge Comments Notes: CM met with patient and friend, patient to discharge today to inpatient rehab. CM spoke with Christopher [phone], patient to arrive around 3:30. CM gave patient directions to call [phone] when he arrives and someone will come to help transport him upstairs. CM explained and delivered IM, patient signed for receit and IM placed in back of chart. Patient to follow up as recommended. CM available to follow up if any further CM needs arise. Date Signed: 11/30/2018 02:26 PM Electronically Signed By:Hedy Torres
[2018-12-03] MEDS ORDERED: CHOLECALCIFEROL VIT D3 2,000 UNITS TAB/CAP PO SCH (08:00)
== END 2018-11-30 15:29 | DRG 62 ==
LOC: EDUNIT# → F2N 05:55 → F3N 11-29 12:25
PROVIDERS: ADMIT Family Medicine; ATTEND Family Medicine
DX: I63.89 Other cerebral infarction (principal); G81.94 Hemiplegia, unspecified affecting left nondominant side; I16.1 Hypertensive emergency; E11.9 Type 2 diabetes mellitus without complications; E78.5 Hyperlipidemia, unspecified; I10 Essential (primary) hypertension; G51.0 Bell's palsy; R29.708 NIHSS score 8
CPT/HCPCS: 82435-PO; 82565-PO; 82947-PO; 84132-PO; 84295-PO; 84520-PO; 85014-ER; 92610-GN; 96365; 97116-GP; 97162-GP; 97165-GO; 97530-GO; 97535-GO; J2405; J2997

== ENCOUNTER 2018-11-30 16:27 | Inpatient (IN) | payer OTHER, MEDICAID ==
[2018-11-30] MEDS ORDERED: ONDANSETRON DISINTEGRATING 4 MG TAB PO PRN (17:20)
--- NOTE | 2018-11-30 18:58 | GHP ---
[f rep st] HISTORY AND PHYSICAL DATE OF ADMISSION: 11/30/2018 TIME OF EVALUATION: 1740. REFERRING FACILITY: [facility]. REFERRING PHYSICIAN: Dr. Mitchell IMPAIRMENT GROUP: 1.1. DATE OF ONSET: 11/28/2018. CONSULTING PHYSICIAN: Neurologist, Dr. Blount. REHABILITATION DIAGNOSIS: Debility status post cerebrovascular accident affecting the right internal capsule. ETIOLOGIC DIAGNOSIS: Left body involvement (right brain). HISTORY OF PRESENT ILLNESS: This patient was watching TV at night and found himself unable to arise from his couch due to left-sided weakness. 911 was called. He was brought to the emergency department where a head CT showed no hemorrhage and CT angiogram showed no arterial blockage. He was given thrombolysis with tPA and had considerable improvement in symptoms. Subsequent brain imaging showed a small lacunar stroke in the right internal capsule. He was begun on aspirin and a statin as his LDL was 151. He initially needed labetalol for a blood pressure greater than 190 systolic and subsequently was begun on lisinopril. He was otherwise medically stable and appropriate for inpatient rehabilitation. LABS AND STUDIES: In the hospital, CBC was normal. Coagulation studies were normal. Serum chemistry showed normal renal function and electrolytes. Glucose was slightly elevated, but hemoglobin A1c was 5.7. Lipid panel showed triglycerides of 205, total cholesterol of 227, LDL of 151, and HDL of 35. PRECAUTIONS: He is a fall risk. ACTIVE COMORBIDITIES: He has no active tier 1, tier 2, or tier 3 comorbidities. PAST MEDICAL HISTORY: 1. Diabetes mellitus type 2, with considerable improvement through weight loss and ketogenic diet. 2. Dewey palsy. 3. Hypertension. 4. Prior lacunar infarcts. PAST SURGICAL HISTORY: He has had a cholecystectomy. MEDICATIONS: Pre-hospital, he was taking no medications. Admission medications: 1. Aspirin 81 mg p.o. daily. 2. Atorvastatin 10 mg p.o. daily. 3. Cholecalciferol 10,000 units p.o. q.3 days. 4. Lisinopril 5 mg p.o. daily. 5. Ondansetron 4 mg p.o. q.4 hours p.r.n. ALLERGIES: There are no known drug allergies. SOCIAL HISTORY: He lives with his significant other. He is a nonsmoker. He works as a realtor. FAMILY HISTORY: He had a maternal uncle who had a CVA at an elderly age. Otherwise, his family is healthy. REVIEW OF SYSTEMS: He denies vision changes or difficulty swallowing. He feels he has largely recovered his strength, but has some issues with coordination and balance. He has no loss of sensation. He is not in pain. He has no cough or dyspnea. He had approximately a 40 pound weight loss several years ago when he initiated the low carbohydrate ketogenic diet. There are no fevers or chills. There is no cough or dyspnea. He moved his bowels yesterday and typically moves his bowels every 2 or 3 days. He has some urinary hesitancy and sensation of incomplete emptying, but otherwise has no urinary complaints. Otherwise, a 10-point review of systems negative. PHYSICAL EXAMINATION: VITAL SIGNS: Not yet available in the chart. This morning in the hospital, blood pressure was 150/91, heart rate was 56, respiratory rate was 14, and oxygen saturation was 96% on room air. Temperature was 36.5 degrees centigrade. His weight is 67.7 kg for a body mass index of 22. GENERAL: This is a well-nourished, well-developed man, sitting in a chair, dressed in street clothes, eating dinner with his partner in the room. Cooperative and in no acute distress. HEENT: Extraocular movements are intact. Pupils are equal, round, reactive to light. Mucous membranes are moist. Dentition is in poor condition with multiple missing teeth. NECK: Supple. HEART: There is a regular rate and rhythm with no murmurs, rubs, or gallops. LUNGS: Clear to auscultation bilaterally. ABDOMEN: Soft, nontender. Normoactive bowel sounds. No hepatosplenomegaly. EXTREMITIES: There is no cyanosis, clubbing, or edema. Radial and dorsalis pedis pulses are 2+ bilaterally. NEUROLOGIC: He is alert and oriented x3. He has a left facial droop consistent with Dewey palsy, though his partner reports that it is more prominent than it was prior to his CVA. Otherwise, cranial nerves 2-12 are grossly intact. There is no focal weakness. Sensation is intact to light touch. Deep tendon reflexes are 2+ bilaterally at the biceps, patellar, and Achilles tendons. Plantar reflex is indeterminate bilaterally. He has a very slight left pronator drift. [id number] is normal bilaterally. Heel-to- amaya testing reveals some impairment with the left heel on the right chin. There is no dysdiadochokinesis. CURRENT LEVEL OF FUNCTION PER THE PREADMISSION SCREEN,: He was on a regular diet with thin liquids. Lower body dressing was done seated and required contact guard assist. Bed mobility required minimal assist using the bed rail. Transfers required minimal assist with a front-wheeled walker. Seated balance required contact guard assist with a left lean, and standing balance required minimal to moderate assist. He was able to ambulate 5 feet with a front-wheeled walker and minimal assist. There was a report of dizziness. He reports that he subsequently walked considerably further in the hospital. On today's exam. There is no significant change from the pre-admission screen. IMPRESSION: This is a 68-year-old man who had diet-controlled diabetes and dyslipidemia despite being on a low carbohydrate, ketogenic diet, as well as uncontrolled hypertension, who suffered a lacunar cerebrovascular accident to the right internal capsule and had considerable left-sided weakness. He was treated with tPA thrombolytics and has had dramatic improvement in his left- sided motor control, but still has ataxia and difficulty with balance. Additionally, he has a more prominent left facial droop than he had previously from his Dewey palsy. There was no dysphagia. He was treated with initiation of a statin, aspirin, and lisinopril for blood pressure. He was medically stable and appropriate for inpatient rehabilitation. His goal is to complete a rehabilitation stay and return home with the support of his partner and supportive services. For a safe discharge, he will need to achieve independence for all activities of daily living and mobility, and independence to modified independence with mobility, using the least restrictive device. He will need to have insight into his deficits and be able to use compensatory strategies. He will have therapy with physical therapy and occupational therapy for 90 minutes per day for each discipline on 5-7 days of the week. His expected duration of stay is 12-14 days. It is anticipated that upon discharge, he will benefit from home health services , including nursing, occupational therapy, and physical therapy. IMPRESSION: 1. Cerebrovascular accident with balance impairment and ataxia of the left lower extremity more than left upper extremity. PT and OT to optimize his mobility and activities of daily living. 2. Secondary prevention of cerebrovascular disease. Continue atorvastatin for control of dyslipidemia, aspirin, and lisinopril for hypertension. 3. Hypertension. Blood pressure was elevated this morning in the hospital, but he is still within the window of permissive hypertension. Continue lisinopril 5 mg daily, but would have a low threshold to increase the dose if his blood pressures are consistently over 140/90. 4. Diabetes mellitus type 2, diet controlled. Will have a dietary consult. 5. Poor dentition. Advised referral to a dentist after his discharge. 6. Prophylaxis. His mobility has increased considerably and physical therapy documents ambulation of 130 feet today. If he continues to improve in mobility and as he is not obese and does not have hemiparesis, will not prescribe pharmacologic prophylaxis. He reports he had impaired sleep due to the [facility], so I will not prescribe these either. He needs to improve mobility and ambulate to meals. 7. Followup. Neurologist, Dr. Blount, wants to see him in followup in 1 to 6 weeks. He should have a followup with a dentist. /[id number]/MODL MTDD
[2018-12-01] MEDS: LISINOPRIL 5 MG TAB PO SCH (08:00)
[2018-12-01] MEDS: ATORVASTATIN CALCIUM 10 MG TAB PO SCH (08:00)
[2018-12-01] MEDS: ASPIRIN EC 81 MG TAB PO SCH (08:00)
--- NOTE | 2018-12-01 13:06 | SOAPPROG ---
SOAP Progress Note Assessment/Plan: Assessment: Pleasant 68 YO gentlemen with R Lacunar CVA 11/28/18, good recovery following tPA. * Debility, altered mobility: Moderate ataxia, decreased balance and strenth impacting mobility. Cont OT/PT eval and treat. * Cognitive impairment: Cont ST eval and treat. * Secondary cerebrovascular disease prevention: Cont Atorvastatin, ASA, Lisinopril * HTN: 129/79 this am. Cont Lisinopril. * DM2: diet controlled. * Prophylaxis: Not currently on any DVT PPX, increase mobility as tolerated. Plan: Cont Dr Dinh rehab treatment plan. Initial staffing on Sunday 12/0312/01/18 13:07 Subjective: No new problems or C/O's Pleasant, engaging Sleep is variable, but not great No F/C/CP/SOB/N/V/D/C No pain issues No impulsivity issues Objective: Vital Signs Temp Pulse Resp BP Pulse Ox 36.4 C 52 L 18 129/79 H 93 12/01/18 07:58 12/01/18 07:58 12/01/18 07:58 12/01/18 08:00 12/01/18 07:58 11/30/18 12/01/18 12/02/18 05:59 05:59 05:59 Intake Total 240 Output Total 950 175 Balance -710 -175 Physical Exam - Physical Exam General Appearance: alert, no apparent distress Neck: supple Respiratory: lungs clear Cardiac/Chest: regular rate, rhythm Abdomen: normal bowel sounds, soft Skin: normal color, warm/dry Extremities: No pedal edema, No calf tenderness Neuro/Psych: alert, normal mood/affect, oriented x 3, abnormal gait, motor weakness (ataxia), other (no acute changes) ICD10 Worksheet Patient Problems: Problems Problem Status Onset Acute ischemic stroke Acute
[2018-12-01] MEDS: OSCILLOCOCCINUM PO PRN (19:46)
[2018-12-01] MEDS: ZINC GLUCONATE PO PRN (19:47)
[2018-12-02] MEDS: LISINOPRIL 5 MG TAB PO SCH (10:06)
[2018-12-02] MEDS: ATORVASTATIN CALCIUM 10 MG TAB PO SCH (10:07)
[2018-12-02] MEDS: ASPIRIN EC 81 MG TAB PO SCH (10:07)
--- NOTE | 2018-12-02 13:06 | SOAPPROG ---
SOAP Progress Note Assessment/Plan: Assessment: Pleasant 68 YO gentlemen with R Lacunar CVA 11/28/18, good recovery following tPA. * Debility, altered mobility: Moderate ataxia, decreased balance and strength impacting mobility. Cont OT/PT eval and treat. * Possible viral URI: last 24 hours pt c/o's of low grade muscle ache, rhinorrhea, congestion. Requested and was given NF homeopathic cold meds. * Cognitive impairment: Cont ST eval and treat. * Secondary cerebrovascular disease prevention: Cont Atorvastatin, ASA, Lisinopril * HTN: 137/77 this am. Cont Lisinopril. * DM2: diet controlled. * Prophylaxis: Not currently on any DVT PPX, increase mobility as tolerated. Plan: Cont Dr Pascal's rehab treatment plan. Initial staffing on Sunday 12/0312/02/18 13:03 Subjective: "Cold symptoms" : C/O mild myalgias, malaise, rhinorrhea. NO F/C/SOB/Cough Sleep challenging 11/24 to mattress Objective: Vital Signs Temp Pulse Resp BP Pulse Ox 36.7 C 52 L 18 128/84 H 94 12/02/18 08:00 12/02/18 08:00 12/02/18 08:00 12/02/18 10:06 12/02/18 08:00 12/01/18 12/02/18 12/03/18 05:59 05:59 05:59 Intake Total 240 900 Output Total 950 1750 Balance -710 -850 Physical Exam - Physical Exam General Appearance: alert, no apparent distress Neck: supple Respiratory: lungs clear Cardiac/Chest: regular rate, rhythm Skin: normal color, warm/dry, No rash Neuro/Psych: alert, normal mood/affect, oriented x 3, other (no acute changes) ICD10 Worksheet Patient Problems: Problems Problem Status Onset Acute ischemic stroke Acute
[2018-12-02] MEDS: OSCILLOCOCCINUM PO PRN (20:10)
[2018-12-02] MEDS: ZINC GLUCONATE PO PRN (20:10)
[2018-12-03] MEDS: ATORVASTATIN CALCIUM 10 MG TAB PO SCH (10:01)
[2018-12-03] MEDS: LISINOPRIL 5 MG TAB PO SCH (10:01)
[2018-12-03] MEDS: ASPIRIN EC 81 MG TAB PO SCH (10:01)
[2018-12-03] MEDS: CHOLECALCIFEROL VIT D3 2,000 UNITS TAB/CAP PO SCH (10:01)
[2018-12-03] MEDS: ZINC GLUCONATE PO PRN (10:02)
[2018-12-03] MEDS: OSCILLOCOCCINUM PO PRN (10:02)
--- NOTE | 2018-12-03 14:14 | SOAPPROG ---
SOAP Progress Note Assessment/Plan: Assessment: Pleasant 68 YO gentlemen with R Lacunar CVA 11/28/18, good recovery following tPA. Debility, altered mobility: Moderate ataxia, decreased balance and strength impacting mobility. * Initial functional independence measure is 94 on 12/03/2018. Independent with bed mobility. Add ambulated 400 ft with standby assist and a cane. Has left footdrop. Climbed and descended stairs with no difficulty. Independent with upper body dressing, standby assist for lower body dressing. Advancing to independent in his room today, 12/03/2018. * Continue OT/PT. Possible viral URI: last 24 hours pt c/o's of low grade muscle ache, rhinorrhea , congestion. Requested and was given NF homeopathic cold meds. * Improved 12/03/2018. Cognitive impairment: * Working on higher level cognitive functions. * Continue CAP INSPECTOR. Also addressing mild dysarthria Secondary cerebrovascular disease prevention: Cont Atorvastatin, ASA, Lisinopril HTN: Adequate control with Lisinopril. DM2: diet controlled. Prophylaxis: Not currently on any DVT PPX, increase mobility as tolerated. DISPOSITION: Attended staffing, 15 min. Discussed with case management, dietitian, nursing, PT, OT, CAP INSPECTOR. Lives in a multilevel home with his partner, who is wheelchair-bound and works outside the house. Plan for discharge on 12/06. Will have outpatient PT, OT and CAP INSPECTOR. 12/03/18 14:40 Subjective: No complaints. Reports SCDs interfere with sleep. No fevers or chills, cough or dyspnea, N/V/C/D. Moved bowels today Objective: Vital Signs Temp Pulse Resp BP Pulse Ox 36.5 C 51 L 16 125/69 H 92 12/03/18 05:16 12/03/18 05:16 12/03/18 05:16 12/03/18 05:16 12/03/18 05:16 12/02/18 12/03/18 12/04/18 05:59 05:59 05:59 Intake Total 900 1800 610 Output Total 1750 1275 1 Balance -850 525 609 - Time Spent With Patient Time Spent With Patient: Greater than 35 min floor time today, including more than 50% of time in coordination of care during staffing meeting, and counseling patient. Physical Exam - Physical Exam General Appearance: WD/WN, alert, no apparent distress Respiratory: No respiratory distress, No accessory muscle use Skin: normal color, warm/dry Neuro/Psych: alert, normal mood/affect, oriented x 3, abnormal gait (Ambulating independently with cane in left hand. Slight left footdrop.) ICD10 Worksheet Patient Problems: Problems Problem Status Onset Acute ischemic stroke Acute
--- NOTE | 2018-12-03 14:37 | PDOREHIP ---
Admission [facility] - Admission - 3 Day Assessment Period Admission Date/Day 1: 11/30/18 Day 2: 12/01/18 Day 3: 12/02/18 - Active Diagnoses Comorbidities and Co-existing Conditions at Admission: 48029. DM (e.g. diabetic retinopathy, nephropathy, and neuropathy) - Skin Conditions Unhealed Pressure Ulcer (1 or more/Stage 1 or >)-Admission: 0. No # Stage 1 Pressure Ulcers-Admission: 0 # Stage 2 Pressure Ulcers-Admission: 0 # Stage 3 Pressure Ulcers-Admission: 0 # Stage 4 Pressure Ulcers-Admission: 0 # Unstageable Pressure Ulcers (Non-remove Dress)-Admission: 0 # Unstageable Pressure Ulcers (Slough/Eschar)-Admission: 0 # Unstageable Pressure Ulcers (Deep Tissue Injury)-Admission: 0
--- NOTE | 2018-12-04 09:46 | SOAPPROG ---
SOAP Progress Note Assessment/Plan: 60-year-old male status post a right lacunar stroke on 11/28/2018 status post tPA with impairments in mobility and self-care as well as cognition. Today's update: Overall neurological improvement, mild hypertension today, not consistent with prior values, continue to monitor. No changes to lisinopril today. Making progress in therapy, overall doing well. A total of 25 min was spent on the floor in the care of the patient, the majority of which was spent in counseling and coordination of care regarding rehab progress, coordinating with therapies. Additional issues reviewed without change include secondary stroke prevention, diabetes, prophylaxis. Remainder of rehabilitation plan is unchanged. 12/04/18 09:43 Subjective: Chief complaint: Left-sided weakness No acute events overnight. Patient denies any new shortness of breath or chest pain, no new numbness, tingling, or weakness. He endorses he still has left- sided weakness and difficulty with coordination, he has good days and bad days but overall are improving. Sleeping well, no other new complaints. Objective: Vital Signs Temp Pulse Resp BP Pulse Ox 36.5 C 60 15 146/76 H 93 12/03/18 19:57 12/03/18 19:57 12/03/18 19:57 12/03/18 19:57 12/03/18 19:57 12/03/18 12/04/18 12/05/18 05:59 05:59 05:59 Intake Total 1800 760 Output Total 1275 426 150 Balance 525 334 -150 Physical Exam - Physical Exam General Appearance: WD/WN, alert, no apparent distress EENT: No scleral icterus (R), No scleral icterus (L) Respiratory: No respiratory distress, No accessory muscle use Cardiac/Chest: normal peripheral pulses, regular rate, rhythm, No edema Skin: normal color, warm/dry, No cyanosis, No diaphoresis Extremities: No pedal edema, No swelling Neuro/Psych: alert, normal mood/affect, other (Left-sided facial droop, decreased speed of rapid alternating movements on the left side, strength in the upper limb was essentially 5/5 bilaterally.) ICD10 Worksheet Patient Problems: Problems Problem Status Onset Acute ischemic stroke Acute
[2018-12-04] MEDS: ATORVASTATIN CALCIUM 10 MG TAB PO SCH (10:07)
[2018-12-04] MEDS: ASPIRIN EC 81 MG TAB PO SCH (10:07)
[2018-12-04] MEDS: LISINOPRIL 5 MG TAB PO SCH (10:07)
[2018-12-05] MEDS: ASPIRIN EC 81 MG TAB PO SCH (08:39)
[2018-12-05] MEDS: LISINOPRIL 5 MG TAB PO SCH (08:39)
[2018-12-05] MEDS: ATORVASTATIN CALCIUM 10 MG TAB PO SCH (08:39)
[2018-12-05] MEDS: OSCILLOCOCCINUM PO PRN (08:40)
--- NOTE | 2018-12-05 13:01 | PDOREHIP ---
Admission [facility] - Admission - 3 Day Assessment Period Admission Date/Day 1: 11/30/18 Day 2: 12/01/18 Day 3: 12/02/18 - Active Diagnoses Comorbidities and Co-existing Conditions at Admission: 47249. None of the Above - Skin Conditions Unhealed Pressure Ulcer (1 or more/Stage 1 or >)-Admission: 0. No # Stage 1 Pressure Ulcers-Admission: 0 # Stage 2 Pressure Ulcers-Admission: 0 # Stage 3 Pressure Ulcers-Admission: 0 # Stage 4 Pressure Ulcers-Admission: 0 # Unstageable Pressure Ulcers (Non-remove Dress)-Admission: 0 # Unstageable Pressure Ulcers (Slough/Eschar)-Admission: 0 # Unstageable Pressure Ulcers (Deep Tissue Injury)-Admission: 0 Discharge [facility] - Discharge - 3 Day Assessment Period 2 Days Prior to Anticipated Discharge Date: 12/04/18 1 Day Prior to Anticipated Discharge Date: 12/05/18 Anticipated Discharge Date: 12/06/18 - Discharge Skin Conditions Unhealed Pressure Ulcer (1 or more/Stage 1 or >)-Discharge: 0. No # Stage 1 Pressure Ulcers-Discharge: 0 # Stage 2 Pressure Ulcers-Discharge: 0 # of These Stage 2 Pressure Ulcers Present on Admission: 0 # Stage 3 Pressure Ulcers-Discharge: 0 # of These Stage 3 Pressure Ulcers Present on Admission: 0 # Stage 4 Pressure Ulcers-Discharge: 0 # of These Stage 4 Pressure Ulcers Present on Admission: 0 # Unstageable Pressure Ulcers (Non-remove Dress)-Discharge: 0 # These Unstageable Pressure Ulcers (NRD)-Present on Admit: 0 # Unstageable Pressure Ulcers (Slough/Eschar)-Discharge: 0 # These Unstageable Pressure Ulcers(Slough) Present on Admit: 0 # Unstageable Pressure Ulcers (Deep Tissue Injury)-Discharge: 0 # These Unstageable Pressure Ulcers (DTI) Present on Admit: 0
--- NOTE | 2018-12-05 13:39 | SOAPPROG ---
SOAP Progress Note Assessment/Plan: Assessment: Pleasant 68 YO gentlemen with R Lacunar CVA 11/28/18, good recovery following tPA. Debility, altered mobility: Moderate ataxia, decreased balance and strength impacting mobility. * Initial functional independence measure is 94 on 12/03/2018. Independent with bed mobility. Ambulated 400 ft with standby assist and a cane. Has left footdrop. Climbed and descended stairs with no difficulty. Independent with upper body dressing, standby assist for lower body dressing. Advancing to independent in his room 12/03/2018. * Continue OT/PT. Possible viral URI: last 24 hours pt c/o's of low grade muscle ache, rhinorrhea , congestion. Requested and was given NF homeopathic cold meds. * Improved 12/03/2018. Cognitive impairment: * Working on higher level cognitive functions. * Continue INDUSTRIAL SERVICER. Also addressing mild dysarthria Secondary cerebrovascular disease prevention: Cont Atorvastatin, ASA, Lisinopril HTN: Adequate control with Lisinopril. DM2: diet controlled. Prophylaxis: Not currently on any DVT PPX, increase mobility as tolerated. DISPOSITION: Lives in a multilevel home with his partner, who is wheelchair- bound and works outside the house. Plan for discharge on 12/06/2018. Will have outpatient PT, OT and INDUSTRIAL SERVICER. 12/05/18 13:37 Subjective: No complaints. Ready to go home tomorrow. Denies irritation to left eye. Objective: Vital Signs Temp Pulse Resp BP Pulse Ox 36.5 C 74 19 142/93 H 95 12/05/18 08:00 12/05/18 08:00 12/05/18 08:00 12/05/18 08:39 12/05/18 08:00 12/04/18 12/05/18 12/06/18 05:59 05:59 05:59 Intake Total 760 640 240 Output Total 426 150 Balance 334 490 240 Physical Exam - Physical Exam General Appearance: WD/WN, alert, no apparent distress EENT: other (Proptosis verses lid lag left eye. Able to close eye completely. No injection or erythema on sclera.) Respiratory: No respiratory distress, No accessory muscle use Skin: normal color, warm/dry Neuro/Psych: alert, normal mood/affect, oriented x 3, facial droop (Left) ICD10 Worksheet Patient Problems: Problems Problem Status Onset Acute ischemic stroke Acute
[2018-12-06 07:13] VITALS: BP 125/73
[2018-12-06] MEDS: ATORVASTATIN CALCIUM 10 MG TAB PO SCH (09:02)
[2018-12-06] MEDS: ASPIRIN EC 81 MG TAB PO SCH (09:02)
[2018-12-06] MEDS: LISINOPRIL 5 MG TAB PO SCH (09:02)
[2018-12-06] MEDS: CHOLECALCIFEROL VIT D3 2,000 UNITS TAB/CAP PO SCH (09:03)
--- NOTE | 2018-12-06 13:46 | GDS ---
[f rep st] DISCHARGE SUMMARY ADMITTING DIAGNOSIS: Cerebrovascular accident of the right internal capsule, status post tissue plasminogen activator thrombolysis. DISCHARGE DIAGNOSIS: Cerebrovascular accident of the right internal capsule, status post tissue plasminogen activator thrombolysis. OTHER DISCHARGE DIAGNOSES: 1. Hypertension. 2. Diabetes mellitus type 2. COMPLICATIONS: There were none. CONSULTATIONS: There were none. PROCEDURES: There were none. HISTORY/HOSPITAL COURSE: This patient came to [facility] inpatient rehabilitation from [facility]. He had awakened at night after watching television, unable to arise due to left- sided weakness. He was brought to the emergency department, where he had head CT and CT angiography, and was determined to be a candidate for tPA thrombolysis. He received tPA and had considerable improvement in symptoms. Subsequent MRI of the brain showed a small lacunar stroke in the right internal capsule. He was begun on aspirin and a statin as his LDL was 151. He initially needed labetalol for blood pressure greater than 90 systolic, and subsequent lisinopril was started. He did well in rehabilitation. His initial functional independence measure was 94 on 12/03/2018, consistent with assisted living facility level of function. He was independent with bed mobility. He ambulated 400 feet with standby assist and a cane. Subtle left footdrop was noted. He could climb and descend stairs with no difficulty. He was independent with activities of daily living. He was subsequently advanced to independent in his room. There was mild cognitive impairment noted, and he was working on higher level cognitive functions with HARDBOARD GRINDER who also addressed mild dysarthria. Blood pressure was adequately controlled on lisinopril. He had diabetes mellitus type 2, which had historically been diet controlled, and he was on no medications. Hemoglobin A1c in the hospital was 5.7. He had consultation with the dietitian. DISCHARGE PLAN: Condition upon discharge is good. DISCHARGE DISPOSITION: He is returning home with his significant other. Diet is regular but he adheres to a low-carbohydrate ketogenic diet. ACTIVITY: Ad unique. He is cautioned not to drive until he has a pre-driving screening per OT. ALLERGIES: There are no known drug allergies. MEDICATIONS UPON DISCHARGE: 1. Aspirin 81 mg p.o. daily. 2. Atorvastatin 10 mg a day. 3. Cholecalciferol 10,000 units p.o. q.3 days. 4. Lisinopril 5 mg p.o. daily. ISSUES TO BE ADDRESSED AT FOLLOWUP: 1. Mobility and activities of daily living. He will continue PT and OT on an outpatient basis and can follow up with his primary care provider. 2. Status post CVA. He will follow up with neurologist, Dr. Waqas Blount. 3. Hypertension, dyslipidemia, and diabetes mellitus type 2. He can follow up with his primary care provider. Copy requested to: Juan Francisco Gibson /[id number]/MODL MTDD
== END 2018-12-06 13:56 | disposition home health service (06) | DRG 57 ==
LOC: BREH 16:27
PROVIDERS: ADMIT Internal Medicine Hospice and Palliative Medicine; ATTEND Internal Medicine Hospice and Palliative Medicine
DX: I69.354 Hemiplegia and hemiparesis following cerebral infarction affecting left non-dominant side (principal); I69.319 Unspecified symptoms and signs involving cognitive functions following cerebral infarction; I69.393 Ataxia following cerebral infarction; I69.322 Dysarthria following cerebral infarction; I69.392 Facial weakness following cerebral infarction; G51.0 Bell's palsy; J00 Acute nasopharyngitis [common cold]; I10 Essential (primary) hypertension; E11.9 Type 2 diabetes mellitus without complications; E78.5 Hyperlipidemia, unspecified; K08.9 Disorder of teeth and supporting structures, unspecified; Z91.81 History of falling
CPT/HCPCS: 92507-GN; 92523-GN; 92610-GN; 97110-GO; 97110-GP; 97112-GO; 97112-GP; 97116-GP; 97162-GP; 97166-GO; 97530-GO; 97530-GP; 97535-GO; G0515-GO